=== PATIENT | female | born 1945 | race Caucasian/White ===

== ENCOUNTER 2017-10-10 13:30 | Inpatient (IN) | payer OTHER ==
[~2017-10-10] VITALS: Ht 170.2 cm; Wt 81.6 kg
[~2017-10-10 13:30] MED LIST: ALTACE10 MG PO; CENTRUM ADULTS1 EACH PO; DURICEF 500 MG CAPSULE PO; OMEPRAZOLE20 M1 PO; OXYC1TAB9 PO; SYNTHROID50 MCG PO
[2017-10-10] MEDS ORDERED: SIMVASTATIN (14:30)
[2017-10-17] MEDS ORDERED: INTEGRA PLUS C1 EACH PO (08:48)
[2017-10-17] MEDS ORDERED: XARELTO10 MG PO (08:48)
[2017-10-17] MEDS ORDERED: PERCOCET 5-3251 EACH PO (08:48)
== END 2017-10-17 12:52 | DRG 470 ==
LOC: O/R 10-14 06:45 → SURH 10-14 06:45
PROVIDERS: Orthopaedic Surgery Sports Medicine
PROC: 0SRC0J9 Replacement of Right Knee Joint with Synthetic Substitute, Cemented, Open Approach (ICD-10-PCS; principal; 2017-10-14 07:00)
DX: M17.11 Unilateral primary osteoarthritis, right knee (principal)

== ENCOUNTER 2019-05-03 18:07 | Emergency (ER) | payer OTHER ==
[~2019-05-03] VITALS: Ht 172.7 cm; Wt 77.1 kg
[~2019-05-03 18:07] MED LIST changes: +INTEGRA PLUS C1 EACH PO; +PERCOCET 5-3251 EACH PO; +SIMVASTATIN; +XARELTO10 MG PO
[2019-05-03] MEDS ORDERED: SIMVASTATIN20 MG (18:53)
== END 2019-05-03 19:25 | disposition home or self-care (01) ==
LOC: ER 18:07
DX: K62.89 Other specified diseases of anus and rectum (principal)

== ENCOUNTER 2019-07-08 09:15 | Inpatient (IN) | payer OTHER ==
[~2019-07-08] VITALS: Ht 172.7 cm; Wt 79.4 kg
[~2019-07-08 09:15] MED LIST changes: +SIMVASTATIN20 MG
== END 2019-07-17 12:52 | disposition home or self-care (01) | DRG 330 ==
LOC: O/R 07-10 05:11 → SURH 07-10 05:11 → O/R 07-10 09:15 → OB/GYN 07-10 09:15 → SURH 07-10 14:25
PROVIDERS: ADMIT Colon & Rectal Surgery
PROC: 0DSP4ZZ Reposition Rectum, Percutaneous Endoscopic Approach (ICD-10-PCS; 2019-07-10)
PROC: 0DUP4JZ Supplement Rectum with Synthetic Substitute, Percutaneous Endoscopic Approach (ICD-10-PCS; 2019-07-10)
PROC: 0DJD8ZZ Inspection of Lower Intestinal Tract, Via Natural or Artificial Opening Endoscopic (ICD-10-PCS; 2019-07-10)
PROC: 3E023BZ Introduction of Anesthetic Agent into Muscle, Percutaneous Approach (ICD-10-PCS; 2019-07-10)
PROC: 0DTN4ZZ Resection of Sigmoid Colon, Percutaneous Endoscopic Approach (ICD-10-PCS; principal; 2019-07-10 09:15)
PROC: 0DQP0ZZ Repair Rectum, Open Approach (ICD-10-PCS; 2019-07-13)
DX: K62.3 Rectal prolapse (principal); K43.6 Other and unspecified ventral hernia with obstruction, without gangrene; K62.5 Hemorrhage of anus and rectum; D62 Acute posthemorrhagic anemia; K63.89 Other specified diseases of intestine; K62.89 Other specified diseases of anus and rectum; R15.9 Full incontinence of feces

== ENCOUNTER 2022-04-03 09:28 | Emergency (ER) | payer OTHER ==
[~2022-04-03] VITALS: Ht 170.2 cm; Wt 72.6 kg
== END 2022-04-03 12:28 | disposition home or self-care (01) ==
LOC: ER 09:28
DX: G44.209 Tension-type headache, unspecified, not intractable (principal)

== ENCOUNTER 2022-10-05 12:15 | Inpatient (IN) | payer OTHER ==
[~2022-10-05] VITALS: Ht 170.2 cm; Wt 85.3 kg
[2022-10-09] MEDS ORDERED: NAPR500T14 PO (08:34)
[2022-10-09] MEDS ORDERED: ZESTRIL20 MG PO (08:35)
[2022-10-10] MEDS ORDERED: MELOXICAM15 MG (07:52)
[2022-10-10] MEDS ORDERED: ATORVASTATIN CA10 MG (07:52)
[2022-10-10] MEDS ORDERED: GABAPENTIN400 MG (07:52)
[2022-10-11] MEDS ORDERED: LEVSIN/SL0.125 MG SL (14:49)
== END 2022-10-11 16:06 | disposition home or self-care (01) | DRG 331 ==
LOC: O/R 10-10 05:15 → SURH 10-10 10:15
PROVIDERS: ADMIT Surgery; ATTEND Surgery
PROC: 0DNW4ZZ Release Peritoneum, Percutaneous Endoscopic Approach (ICD-10-PCS; 2022-10-10)
PROC: 0TN74ZZ Release Left Ureter, Percutaneous Endoscopic Approach (ICD-10-PCS; 2022-10-10)
PROC: 0USG4ZZ Reposition Vagina, Percutaneous Endoscopic Approach (ICD-10-PCS; 2022-10-10)
PROC: 0DSP4ZZ Reposition Rectum, Percutaneous Endoscopic Approach (ICD-10-PCS; principal; 2022-10-10 09:00)
DX: K62.3 Rectal prolapse (principal); K66.0 Peritoneal adhesions (postprocedural) (postinfection); Z20.822 Contact with and (suspected) exposure to COVID-19

== ENCOUNTER 2023-05-05 16:23 | Emergency (ER) | payer OTHER ==
[~2023-05-05] VITALS: Ht 144.8 cm; Wt 54.4 kg
[~2023-05-05 16:23] MED LIST changes: +ATORVASTATIN CA10 MG; +GABAPENTIN400 MG; +LEVSIN/SL0.125 MG SL; +MELOXICAM15 MG; +NAPR500T14 PO; +ZESTRIL20 MG PO
[2023-05-05 19:22] LABS: HEMATOCRIT 34.7 % (36.0-45.00); HEMOGLOBIN 11.9 g/dL (12.0-15.00); MEAN CELL VOLUME 91.4 fL (80.00-100.00); MEAN CORPUSCULAR HEMOGLOBIN 31.3 pg (27.00-32.0); MEAN CORPUSCULAR HGB CONC 34.2 g/dl (32.0-36.0); PLATELET COUNT 216 K/uL (150-450); RED BLOOD COUNT 3.79 M/uL (4.00-6.00); RED CELL DISTRIBUTION WIDTH 13.4 % (11.5-14.5)
[2023-05-05 19:53] LABS: ALBUMIN 3.6 gm/dL (3.4-5.0); BILIRUBIN TOTAL 0.37 mg/dL (0.3-1.2); CALCIUM 9.5 mg/dL (8.5-10.1); CREATININE SERUM 0.94 mg/dL (0.55-1.02); GFR 57.59; GLOBULINA 4.9 G/DL (2.4-3.5); POTASSIUM 3.88 mEq/L (3.5-5.1); TOTAL PROTEIN 8.5 gm/dL (6.4-8.2); TSH 1.86 uIU/mL (0.358-3.74)
[2023-05-05 20:37] LABS: URINE APPEARANCE Clear; URINE BILIRRUBIN Negative (NEGATIVE); URINE BLOOD Large; URINE COLOR Yellow; URINE GLUCOSE Negative (NEGATIVE); URINE LEUKOCYTE Trace; URINE NITRATE Negative
[2023-05-05 20:41] LABS: URINE BACTERIA 36.5 uL (0.0-1933); URINE EPITHELIAL CELLS 11.5 uL (0.0-38.8); URINE RBC 214.1 uL (0.0-20.8); URINE WBC 7.2 uL (0.0-23.2)
[2023-05-05 21:10] LABS: URINE PROTEIN 300 (NEGATIVE)
== END 2023-05-05 21:44 | disposition home or self-care (01) ==
LOC: ER 16:23
PROVIDERS: General Practice
DX: G50.0 Trigeminal neuralgia (principal); I10 Essential (primary) hypertension; G40.89 Other seizures

== ENCOUNTER → 2024-03-23 | Emergency (ER) | payer OTHER ==
[~2024-03-23] VITALS: Ht 170.2 cm; Wt 89.8 kg
[~2024-03-23] MED LIST changes: +BENZONATATE 100 MG CAPSULE PO ONE; +GUAIFENESIN 200 MG/10 ML BLIST.PACK PO ONE
== END | disposition left against medical advice (07) ==
LOC: ER 14:02
DX: R53.81 Other malaise (principal); I10 Essential (primary) hypertension; E03.8 Other specified hypothyroidism